=== PATIENT | male | born 1980 | race Caucasian/White ===

== ENCOUNTER 2024-07-26 06:00 | Day surgery (SDC) | payer BC ==
[2024-07-26] MEDS ORDERED: Lactated Ringers 1,000 ML IV ONE (06:01)
[2024-07-26] MEDS ORDERED: Lactated Ringers 1,000 ML IV SCH (06:15)
[2024-07-26] MEDS: Acetaminophen 325 MG Tab PO ONE (06:17)
[2024-07-26] MEDS: oxyCODONE ER 10 MG TAB.ER PO ONE (06:17)
[2024-07-26] MEDS: Pregabalin 25 MG Cap PO ONE (06:17)
[2024-07-26] MEDS ORDERED: Propofol 200 MG/20 ML SDV ONE ×3 (06:33→08:21)
[2024-07-26] MEDS ORDERED: Midazolam 1 MG/ML 2 ML SDV ONE (06:35)
[2024-07-26] MEDS ORDERED: Sodium Chloride 0.9% 10 ML Syringe FLUSH PRN (06:51)
[2024-07-26] MEDS ORDERED: Ropivacaine 0.5% 5 MG/ML 30 ML SDV ONE (07:22)
[2024-07-26] MEDS ORDERED: ceFAZolin 2 GM Vial ONE ×2 (07:27)
[2024-07-26] MEDS ORDERED: dexmedeTOMIDine HCl 200 MCG/2 ML SDV ONE (07:55)
[2024-07-26] MEDS ORDERED: HYDROmorphone 0.5 MG/0.5 ML Syringe IVPUSH PRN (08:15)
[2024-07-26] MEDS ORDERED: fentaNYL 100 MCG/2 ML SDV IVPUSH PRN (08:15)
[2024-07-26] MEDS: Morphine 8 MG, EPINEPHrine 0.3 MG, Cefuroxime 750 MG, Ketorolac 30 MG, Sodium Chloride ... PRN (08:21)
[2024-07-26] MEDS: Tranexamic Acid 1,000 MG/10 ML Vial ONE (08:29)
[2024-07-26] MEDS: VANCOmycin 1 GM SDV ONE (08:29)
[2024-07-26] MEDS: Triamcinolone Acetonide 40 MG/ML 1 ML SDV ONE (08:39)
[2024-07-26] MEDS: Bupivacaine 0.25% 10 ML SDV ONE (08:39)
[2024-07-26] MEDS ORDERED: Sodium Chloride 0.9% 10 ML Syringe FLUSH SCH (09:00)
[2024-07-26] MEDS: oxyCODONE 5 MG Tab PO PRN (09:40)
== END 2024-07-26 12:29 | disposition home or self-care (01) ==
LOC: JD.SDS 06:00
PROVIDERS: ATTEND Orthopaedic Surgery
DX: M17.0 Bilateral primary osteoarthritis of knee (principal); Z79.899 Other long term (current) drug therapy
CPT/HCPCS: 0055T; 20610; 27447; 64447; 73560; 97110; 97116; 97162; A9270; C1713; C1776; J0171; J0665; J0690; J0697; J1885; J2250; J2272; J2704; J2795; J3301; J7120; 01400; J3490